=== PATIENT | male | born 1950 | race Caucasian/White ===

== ENCOUNTER → 2019-08-14 | Outpatient (CLI) | payer MEDICARE ==
[~2019-08-14] MED LIST: AMAN100C7 PO; AMANTADINE; ASPI81TA45 PO; ATOR40TA78 PO; CARB1TAB PO; CARB1TAB22 PO; CARBIDOPA; CARV3.1212 PO; FURO40TA6 PO; LEVADOPA; LISI5TAB7 PO; RIVA6CAP3 PO; RIVASTIGMINE; SELE5TAB PO; SPIR25TA PO; [UNRECOGNIZED DRUG - OTHER]
[2019-08-14 07:59] LABS: ANION GAP 5 mmol/L (5-15); CALCIUM 9.1 mg/dL (8.5-10.1); CHLORIDE 106 mmol/L (98-107)
[2019-08-14 08:03] LABS: ALANINE AMINOTRANSFERASE 41 U/L (12-78); ALKALINE PHOSPHATASE 116 U/L (45-117); BILIRUBIN,TOTAL 1.1 mg/dL (0.2-1.0); CHOL/HDL RATIO 2.8; CHOLESTEROL, TOTAL 132 mg/dL (140-239); CREATININE 1.85 mg/dL (0.7-1.3); HDL CHOL % 36 % (26-37); HDL CHOLESTEROL (DIRECT) 48 mg/dL (40-60); LDL CHOLESTEROL,CALCULATED 59 mg/dL (54-169); LDL/HDL RATIO 1.2 (0.5-3.0); TOTAL PROTEIN 8.2 g/dL (6.4-8.2); TRIGLYCERIDES 124 mg/dL (50-200); VLDL CHOLESTEROL 25 mg/dL (0-25)
== END | disposition home or self-care (01) ==
LOC: CFH 07:16
PROVIDERS: ATTEND Family Medicine
DX: I12.9 Hypertensive chronic kidney disease with stage 1 through stage 4 chronic kidney disease, or unspecified chronic kidney disease (principal); N18.3 Chronic kidney disease, stage 3 (moderate); I42.9 Cardiomyopathy, unspecified; E78.2 Mixed hyperlipidemia
CPT/HCPCS: 36415; 80053; 80061

== ENCOUNTER → 2020-05-28 | Outpatient (CLI) | payer MEDICARE ==
[~2020-05-28] MED LIST changes: -RIVA6CAP3 PO; +RIVA6CAP4 PO
== END | disposition home or self-care (01) ==
LOC: CFH 09:58
PROVIDERS: ATTEND Internal Medicine Cardiovascular Disease
DX: I35.8 Other nonrheumatic aortic valve disorders (principal); I42.9 Cardiomyopathy, unspecified
CPT/HCPCS: 93306